=== PATIENT | female | born 1935 | race Caucasian/White ===

== ENCOUNTER 2016-11-05 11:52 | Inpatient (IN) ==
[2016-11-05] MEDS ORDERED: ACETAMINOPHEN 325 MG TABLET PO PRN (15:23)
[2016-11-05] MEDS ORDERED: ONDANSETRON 4 MG/2 ML VIAL IV PRN (15:23)
[2016-11-05] MEDS: metroNIDAZOLE INJ 500 MG in PREMIX 1 EACH IV SCH ×2 (15:41→20:36)
--- NOTE | 2016-11-05 16:20 | General Surg History&Physical ---
Assessment and Plan (1) Left foot infection Status: Acute Assessment and plan: Patient will require surgical debridement. Will admit and initiate IV antibiotics overnight. Indication for surgery as well as the alternative treatment options were reviewed with patient. The risks of surgery reviewed including but not limited to worsening infection, bleeding, blood vessel injury , nerve injury, chronic pain, scarring, the need for additional procedures, partial loss of limb, pneumonia, heart attack, stroke, reactions to medications the possibility of . The patient is aware she is at increased risk considering her cardiac history. We will proceed with surgery in the morning. Current Visit: Yes (2) CHF (congestive heart failure) Status: Acute Assessment and plan: Patient with congestive heart failure last documented EF in medical record 20%; patient reports 3 weeks ago EF of 45% Dr. Dow. Patient also with pulmonary hypertension. We will be judicious with fluids and monitor closely. Current Visit: Yes History of Present Illness Chief complaint: Foot wound History of present illness: Ms. Dempsey is a 80 year old female with past medical history CLL, CHF, CAD, pulmonary HTN GERD, hypertension, hyperlipidemia, and MRSA currently admitted from the office for left foot wound with associated ascending cellulitis. Patient reports this particular wound began approximately 2 weeks ago which she is she is self treated and reports improvement until approximately 3-4 days ago at which time she noted darkening of the wound as well as progression in the erythema. She has had no fever, chills or riders. No drainage from the wound. She denies recent chest pain, palpitations, shortness of breath, wheeze or cough. Pt with last ECHO on record 09/2015 EF 20% and severe pulmonary HTN with PAP 77mmHg. Pt reports she saw Dr. Villanueva 3 wks ago with EF 45%. Home Medications Medication Instructions Recorded Confirmed Type Aspirin Chew Tab 81 mg PO DAILY #100 tablet 08/09/15 09/13/15 Rx Cyclobenzaprine HCl 10 mg PO TID PRN 08/09/15 09/13/15 History Esomeprazole Magnesium [Nexium] 40 mg PO DAILY 08/09/15 09/13/15 History Galantamine HBr [Galantamine ER 8 mg PO DAILY 08/09/15 09/13/15 History Cap] HYDROcodone/ACETAMIN 7.5-325 2 tablet PO BEDTIME PRN 08/09/15 09/13/15 History [Michael 7.5-325] Idelalisib [Zydelig] 150 mg PO BID 08/09/15 09/13/15 History Melatonin 5 mg PO BEDTIME 08/09/15 09/13/15 History Promethazine Tab [Phenergan Tab] 25 mg PO Q8HR PRN 08/09/15 09/13/15 History Ropinirole HCl 0.5 mg PO BEDTIME 08/09/15 09/13/15 History Zolpidem Tartrate 10 mg PO BEDTIME 08/09/15 09/13/15 History hydrOXYzine HCl [Hydroxyzine HCl] 25 mg PO Q6HR PRN 08/09/15 09/13/15 History Atorvastatin [Lipitor] 40 mg PO BEDTIME 09/13/15 09/13/15 History Benazepril HCl 40 mg PO DAILY 09/13/15 09/13/15 History Carvedilol 6.25 mg PO BID 09/13/15 09/13/15 History Furosemide 40 mg PO DAILY 09/13/15 09/13/15 History Magnesium Oxide 250 mg PO DAILY 09/13/15 09/13/15 History Tobramycin 0.3% Oph Soln [Tobrex 1 drop BOTH EYES Q4HR 09/13/15 09/13/15 History 0.3% Oph Soln] Diphenoxylate/Atrop 2.5-0.025 1 tablet PO TID PRN 09/14/15 09/14/15 History [Lomotil Tab] Ticagrelor [Brilinta] 90 mg PO BID #60 tablet 09/15/15 Rx Allergies Allergy/AdvReac Type Severity Reaction Status Date / Time Erythromycin Base Allergy Intermediate RASH Verified 03/03/15 12:23 piroxicam [From Feldene] Allergy Intermediate RASH Verified 03/03/15 12:23 Sulfa (Sulfonamide Allergy Intermediate RASH Verified 03/03/15 12:23 Antibiotics) Medical,Surgical,& Family Hx - Medical History Cardio: History of: CHF, Hypertension, Cardiovascular Problems (Pulmonary HTN) Neurology: History of: Migraine, TIA No history of: Seizures Musculoskeletal: History of: Back/Neck Problems (surgery) Hematology: History of: Anemia, Hematologic Cancer (CLL ) Other: History of: Cancer (CLL) - Surgical History Cardiac Surgeries: Sugical HX of: Cardiac Catheterization Thoracic Surgeries: Patient denies;: Organ Transplant Neurologic Surgeries: Patient denies: Neurologic Surgery Abdominal Surgeries: Surgical HX of: Appendectomy, Colonoscopy, EGD Reproductive Surgeries: Surgical HX of;: Hysterectomy - Family History Family History: Reports;: Family Hypertension (Mother) - Social History Smoking Status: Never smoker Frequency of Alcohol Use: None Type of Drug Use: None Exam - Constitutional Vitals: Period Temp Pulse Resp BP Sys/Ramon Pulse Ox Last 24 Hr 98.8 F-98.8 F 69-70 18-18 115-128/56-63 94-96 General appearance: no acute distress - Head Head exam: Present: normal inspection, normocephalic - Eye Eye exam: Absent: conjunctival injection, periorbital swelling - Neck Neck exam: Present: trachea midline - Respiratory Respiratory exam: Present: clear to auscultation bilaterally - Cardiovascular Cardiovascular exam: Present: RRR - GI/Abdominal GI/Abdominal exam: Present: normal bowel sounds, soft. Absent: tenderness - Extremities Exam Extremities exam: Present: other (Left foot with eschar over dorsum of foot appx 3cm diamter and surounding erythema covering dorsum of foot; no drainage or malodor. DP pulses 2+). Absent: calf tenderness, edema - Neurological Exam Neurological exam: Present: alert, oriented X3 Speech: Present: normal - Skin Skin exam: Present: warm - Constitutional Constitutional: Absent: chills, fever(s) - Cardiovascular Cardiovascular: Present: other (no edema). Absent: chest pain at rest, chest pain with activity, dyspnea on exertion, orthopnea - Respiratory Respiratory: Absent: cough, dyspnea on exertion, wheezing - Gastrointestinal Gastrointestinal: Absent: abdominal pain, diarrhea, nausea, vomiting - Genitourinary Genitourinary: Absent: dysuria, flank pain - Musculoskeletal Musculoskeletal: Absent: arthralgias Hematologic/Lymphatic: Absent: easy bleeding, easy bruising Quality Measures - VTE Contraindication to Pharmacological VTE Prophylaxis: High Risk of Bleeding
[2016-11-05] MEDS: PIPERACILLIN/TAZOBACTAM 3,375 MG in SODIUM CHLORIDE 0.9% 100 ML IV SCH ×2 (16:54→22:28)
[2016-11-06] MEDS: metroNIDAZOLE INJ 500 MG in PREMIX 1 EACH IV SCH ×4 (03:02→21:25)
[2016-11-06] MEDS: PIPERACILLIN/TAZOBACTAM 3,375 MG in SODIUM CHLORIDE 0.9% 100 ML IV SCH ×4 (06:27→22:51)
[2016-11-06] MEDS ORDERED: PROPOFOL 200 MG/20 ML VIAL IV ONE (07:49)
[2016-11-06] MEDS ORDERED: MIDAZOLAM 2 MG/2 ML VIAL ONE (07:49)
[2016-11-06] MEDS ORDERED: fentaNYL 100 MCG/2 ML VIAL ONE (07:49)
[2016-11-06] MEDS ORDERED: LACTATED RINGERS 1,000 ML IV SCH (08:00)
[2016-11-06] MEDS: PANTOPRAZOLE 40 MG TABLET PO SCH (08:54)
--- NOTE | 2016-11-06 09:31 | Anesthesia Post-Op ---
Anesthesia Post OP - Post Ansesthetic Evaluation Patient seen in post op: Yes Resp: within normal limits CV: within normal limits Mental: within normal limits Temp: within normal limits [id number]-[id number]: within normal limits Nausea and Vomiting: within normal limits Pain: within normal limits
[2016-11-06 09:53] LABS: Basophils % 0.6 % (0.0-0.8); Eosinophils # 0.1 10*3/uL (0.0-0.87); Eosinophils % 1.7 % (0.00-10.9); Hematocrit 33.5 VOL% (35.7-47.0); Hemoglobin 10.3 GM/DL (12.0-16.0); Immature Granulocytes % 0.4 %; Immature Granulocytes Absolute 0.02 #; Lymphocytes # 3.8 10*3/uL (1.4-4.0); Lymphocytes % 80.6 % (21.3-54.2); Mean Corpuscular HGB Conc 30.7 GM/DL (32-36); Mean Corpuscular Hemoglobin 25 PG (27-34); Mean Corpuscular Volume 79.8 FL (87-102); Monocytes # 0.5 10*3/uL (0.11-0.8); Monocytes % 10.1 % (1.7-12.7); Neutrophils # 0.3 10*3/uL (1.4-7.4); Neutrophils % 6.6 % (38.7-73.9); Platelet Count 129 T/CUMM (130-400); Red Cell Distribution Width 13.8 % (9.3-17.3); White Blood Count 4.7 T/CUMM (4-12)
[2016-11-06 10:15] LABS: Eosinophils 2 % (0-10); Lymphocytes 77 % (20-55); Segmented Neutrophils 8 % (50-85); Total Cells Counted 100
[2016-11-06 10:16] LABS: Atypical Lymphocytes Few; Hypochromasia 1+; Microcytosis 1+; Ovalocytes Slight
[2016-11-06 10:17] LABS: Platelet Estimate Adequate
--- NOTE | 2016-11-06 13:53 | Operative Note ---
Date of procedure: 11/06/16 Pre-op diagnosis: Necrotic skin and subcutaneous tissue of the left foot Post-op diagnosis: same Procedure: Procedure performed: Excisional debridement of dorsal left foot including skin and subcutaneous tissue. Area debrided was 1.7 x 1.6 cm Procedure in detail: After informed consent was obtained patient taken operating suite placed upon the operating table. After monitored anesthesia initiated left foot was prepped and draped in usual sterile fashion. A procedural pause local anesthetic infiltrated skin and subcutaneous tissue around the necrotic area. 15 blade scalpel was used to perform an excisional debridement removing the nonviable skin and subcutaneous tissue. Below this appeared to be healthy tissue. There was no exposed bone ligament or structural components. The tissue appeared healthy and viable after debridement. Good hemostasis was obtained and the wound was packed. Sterile dressings applied. Patient was taken to recovery room in stable condition. All lap and needle counts correct at the end of the case. Anesthesia: MAC, local Surgeon / Physician: Barry Aranda Estimated blood loss: other (Less than 5 cc) Specimens: other (Necrotic tissue) Condition: stable Disposition: PACU Results - Labs CBC & BMP: 11/06/16 09:27 Discharge Plan - Discharge Medications No Action hydrOXYzine HCl [Hydroxyzine HCl] 25 mg PO Q6HR PRN PRN Reason: Anxiety Cyclobenzaprine HCl 10 mg PO TID PRN PRN Reason: Muscle Spasm Galantamine HBr [Galantamine ER Cap] 8 mg PO BID Esomeprazole Magnesium [Nexium] 40 mg PO DAILY metFORMIN [Glucophage] 500 mg PO BID W/MEALS Sacubitril/Valsartan [Entresto 97 mg-103 mg Tablet] 1 tablet PO BID Atorvastatin [Lipitor] 20 mg PO BEDTIME Ropinirole HCl [Requip] 0.5 mg PO BEDTIME Amlodipine Besylate 5 mg PO DAILY Metoprolol Succinate 50 mg PO BID - Follow Up or Referral - Forms/Instructions
[2016-11-06] MEDS: METOPROLOL SUCCINATE XL 50 MG TABLET PO SCH (21:28)
[2016-11-06] MEDS: GALANTAMINE 8 MG PO SCH (21:28)
[2016-11-07] MEDS: metroNIDAZOLE INJ 500 MG in PREMIX 1 EACH IV SCH ×2 (02:57→08:42)
[2016-11-07 05:47] LABS: Potassium 3.9 MMOL/L (3.5-5.1)
[2016-11-07] MEDS: PIPERACILLIN/TAZOBACTAM 3,375 MG in SODIUM CHLORIDE 0.9% 100 ML IV SCH (06:09)
[2016-11-07] MEDS: PANTOPRAZOLE 40 MG TABLET PO SCH (08:43)
[2016-11-07] MEDS: METOPROLOL SUCCINATE XL 50 MG TABLET PO SCH (08:43)
[2016-11-07] MEDS: GALANTAMINE 8 MG PO SCH (08:48)
[2016-11-07] MEDS ORDERED: amLODIPine 5 MG TABLET PO SCH (09:00)
--- NOTE | 2016-11-07 09:23 | Discharge Summary ---
Hospital Course - Hospital Course Hospital Course: Patient is a 72-year-old female who was direct admitted from the office for excisional debridement of necrotic wound with associated cellulitis. She received IV antibiotics and responded appropriately. There were no complications to note postoperatively. She was discharged home in good condition. She was discharged on oral ciprofloxacin based on MRSA cultures from previous wounds. Wet-to-dry dressing changing education was provided to her and her daughter to be performed daily. [address] Aranda. Diagnosis - Discharge Diagnosis (1) Left foot infection Status: Acute (2) CHF (congestive heart failure) Status: Chronic Discharge Plan - Discharge Data Disposition: Disch To Home/Self Care Condition at Discharge: Stable Discharge Diet: advance to your usual diet, low salt diet Activity: other (Limit ambulation. Elevate LLE while seated. No footwear to rub wound. ) Hygiene: may shower (Do not submerge or soak wound. ) Driving: other (No driving while taking narcotics) Contact your physician if you experience:: fever over 101, Difficulty voiding, Redness or swelling, Nausea/Vomiting, Shortness of breath, Bleeding, pain uncontrolled by pain medications Wound / Dressing Care Instructions: Keep surgical wound clean, dry and covered. Avoid excessive perspiration. - Discharge Medications New Ciprofloxacin Tab [Cipro Tab] 500 mg PO BID #14 tablet HYDROcodone/ACETAMIN 7.5-325 [[place] 7.5-325] 1 tablet PO Q4H PRN #30 tablet PRN Reason: Pain Moderate To Severe (4-10) Continue hydrOXYzine HCl [Hydroxyzine HCl] 25 mg PO Q6HR PRN PRN Reason: Anxiety Cyclobenzaprine HCl 10 mg PO TID PRN PRN Reason: Muscle Spasm Galantamine HBr [Galantamine ER Cap] 8 mg PO BID Esomeprazole Magnesium [Nexium] 40 mg PO DAILY metFORMIN [Glucophage] 500 mg PO BID W/MEALS Sacubitril/Valsartan [Entresto 97 mg-103 mg Tablet] 1 tablet PO BID Atorvastatin [Lipitor] 20 mg PO BEDTIME Ropinirole HCl [Requip] 0.5 mg PO BEDTIME Amlodipine Besylate 5 mg PO DAILY Metoprolol Succinate 50 mg PO BID - Follow Up or Referral Follow Up: Barry Aranda MD [Physician] - (11/[address] [place] - please schedule late morning or afternoon) - Forms/Instructions Instructions: Wound Infection (DC) Exam - Constitutional Vitals: Period Temp Pulse Resp BP Sys/Ramon Pulse Ox Last 24 Hr 97.5 F-98.2 F 68-79 16-20 116-148/61-72 96-98 General appearance: no acute distress - Head Head exam: Present: normal inspection, normocephalic - Eye Eye exam: Absent: conjunctival injection, scleral icterus - Respiratory Respiratory exam: Present: clear to auscultation bilaterally - Cardiovascular Cardiovascular exam: Present: regular rate and rhythm - GI/Abdominal GI/Abdominal exam: Present: normal bowel sounds, soft. Absent: tenderness - Extremities Exam Extremities exam: Absent: calf tenderness, edema - Neurological Exam Neurological exam: Present: alert, oriented X3 - Psychiatric Psychiatric exam: Present: normal affect, normal mood - Skin Skin exam: Present: normal color (Toes warm with brisk capillary refill. New dressing is in place which is clean and dry.) Discharge Results Procedures and tests throughout hospitalization: Pending Orders 11/07/16 04:00 BMP [Basic Metabolic Panel] #Excisional debridement left foot wound Labs on day of discharge: Labs from last 24 hours 11/07/16 11/06/16 04:43 09:27 WBC 4.7 RBC 4.20 Hgb 10.3 L Hct 33.5 L MCV 79.8 L MCH 25 L MCHC 30.7 L RDW 13.8 Plt Count 129 L MPV 9.0 L Neut % (Auto) 6.6 L Lymph % (Auto) 80.6 H [place] % (Auto) 10.1 Eos % (Auto) 1.7 Baso % (Auto) 0.6 Neut # (Auto) 0.3 L Lymph # (Auto) 3.8 [place] # (Auto) 0.5 Eos # (Auto) 0.1 Baso # (Auto) 0.0 Total Counted 100 Immature Gran % 0.4 Nucleated RBC % 0.0 Immature Gran # 0.02 Segmented Neutrophils 8 L Lymphocytes 77 H Monocytes 13 Eosinophils 2 Nucleated RBCs # 0.00 Atypical Lymphocytes Few Platelet Estimate Adequate Hypochromasia 1+ Microcytosis 1+ Ovalocytes Slight Sodium 143 Potassium 3.9 Chloride 107 Carbon Dioxide 25 Anion Gap 14.9 BUN 23 H Creatinine 0.90 GFR Calculation 58 BUN/Creatinine Ratio 25.00 H Glucose 161 H Calculated Osmolality 291.0 Calcium 8.0 L DS: Provider Date of admission: 11/05/16 12:50 Primary care physician: Nonstaff Physician Attending physician on admission: Barry Aranda MD Consults: 11/05/16 15:06 Consult to Pastoral Services [CONS] Routine Comment: Pastoral Screen: Request Video Rental Clerk Visit Pastoral Screen Source of Request: Patient Discharging clinician: Lali Yip PA-C
[2016-11-07 11:38] VITALS: BP 144/68
--- NOTE | 2016-11-07 13:19 | Pathology Report from [facility] ---
[facility] – [place] ACCESSION # : [id number] PATIENT NAME : Josette Dempsey ORDERING DR : Barry Aranda MD CLINICAL HX: Foot ulcer & cellulitis POST-OP DX: Same SPECIMEN INFO: LT foot lesion GROSS DESCRIPTION: Received in formalin labeled JOSETTE DEMPSEY is a 2.1 x 1.7 x 0.4 cm reddish pink skin fragment with a cruz arana ulcerated skin surface. Bilingual Case Manager sections are submitted in one cassette. DIAGNOSIS FOR JOSETTE DEMPSEY: LEFT FOOT LESION, DEBRIDEMENT: Ulceration with necrosis and suppuration. COLLECTED DATE: 11/06/2016 [facility] [place] REPORT DATE: 11/07/2016 ELECTRONICALLY SIGNED BY: Bebo Norris M.D. 11/07/2016 - 10:09:51 [facility]
--- NOTE | 2016-11-11 16:26 | Physician Query Form ---
CLICK EDIT DOCUMENT TO SELECT QUERY ANSWER --> OK --> SIGN Bette Miguel RN Clinical Date Night Caregiver W) [phone] (f) [phone] [email or web address]: Make your selection(s) from the choices in EACH section by typing an "x" and enter comments in the comment section. Please use your independent medical judgment in providing your response. This request does not imply that any particular answer is desired or expected. CLINICAL INDICATORS: (Providers should not edit this section) Based on documentation of "CHF, last documented EF in medical record 20%". Pt. takes Amlodipin and Metoprolol as home medications. Please provide further specificity regarding CHF. ACUITY: ( ) Acute (x ) Chronic ( ) Acute on Chronic ( ) Clinicallly unable to determine TYPE: ( x) Systolic (HFrEF - heart failure with reduced systolic function/EF) ( ) Diastolic (HFpEF - heart failure with preserved systolic function/EF) ( ) Combined Systolic/Diastolic ( ) Other, please specify: ( ) Clinically unable to determine ( ) The patient does NOT have CHF COMMENTS: PLEASE ALSO DOCUMENT RESPONSE IN PROGRESS NOTES AND/OR DISCHARGE SUMMARY Use of terms such as suspected, likely, or probable (associated with a specific diagnosis that is being evaluated, monitored, or treated as if it exists) are acceptable and can be restated in the discharge summary if not ruled out. MTDD
== END 2016-11-07 12:46 | disposition home or self-care (01) | DRG 264 ==
LOC: N.3E 12:50
PROVIDERS: ADMIT Surgery; ATTEND Surgery

== ENCOUNTER 2016-12-17 11:25 | Inpatient (IN) ==
[2016-12-17] MEDS ORDERED: CLINDAMYCIN INJ 900 MG in PREMIX 1 EACH IV SCH (14:00)
[2016-12-17 14:17] LABS: Basophils % 0.5 % (0.0-0.8); Eosinophils # 0.1 10*3/uL (0.0-0.87); Eosinophils % 1.7 % (0.00-10.9); Hemoglobin 10.4 GM/DL (12.0-16.0); Immature Granulocytes Absolute 0.06 #; Lymphocytes # 4.4 10*3/uL (1.4-4.0); Lymphocytes % 75.2 % (21.3-54.2); Mean Corpuscular HGB Conc 31.5 GM/DL (32-36); Mean Corpuscular Hemoglobin 24 PG (27-34); Mean Corpuscular Volume 77.3 FL (87-102); Mean Platelet Volume 8.4 FL (9.6-12.0); Monocytes # 0.7 10*3/uL (0.11-0.8); Monocytes % 12.2 % (1.7-12.7); Neutrophils # 0.5 10*3/uL (1.4-7.4); Neutrophils % 9.4 % (38.7-73.9); Platelet Count 155 T/CUMM (130-400); Red Blood Count 4.27 MC/CUMM (3.8-5.5); Red Cell Distribution Width 14.5 % (9.3-17.3); White Blood Count 5.8 T/CUMM (4-12)
[2016-12-17 14:41] LABS: Calcium 8.6 MG/DL (8.5-10.1); Osmolality,Calculated 284.4 MOS/KG (273-304); Potassium 3.6 MMOL/L (3.5-5.1)
[2016-12-17 15:04] LABS: Band Neutrophils 1 % (0-10); Eosinophils 3 % (0-10); Lymphocytes 78 % (20-55); Platelet Estimate Normal; Segmented Neutrophils 11 % (50-85); Total Cells Counted 100
[2016-12-17 15:05] LABS: Atypical Lymphocytes Few; Hypochromasia Slight; Ovalocytes Few
[2016-12-17 15:06] LABS: Smudge Cells Few
[2016-12-17] MEDS: PIPERACILLIN/TAZOBACTAM 3,375 MG in SODIUM CHLORIDE 0.9% 100 ML IV SCH ×2 (15:17→22:15)
--- NOTE | 2016-12-17 15:59 | Infectious Disease Consult ---
Assessment and Plan (1) Cellulitis of left foot Status: Acute Assessment and plan: Cellulitis to dorsum of left foot with central area of necrosis. Recommendations: 1. Blood cultures for completeness sake 2. Agree with empiric Zosyn 2. Incentive clindamycin would give empiric vancomycin [patient has old culture with MRSA which is actually resistant to clindamycin]; consult pharmacy to assist with dosing and monitoring Thank you very much for the consult. Will follow. Current Visit: Yes (2) CLL (chronic lymphocytic leukemia) Status: Acute Current Visit: No History of Present Illness Chief complaint: Necrotic wound to left foot with cellulitis History of present illness: Ms. Dempsey is a 81 year old female with a history of CLL was doing well until about September this year when she developed a small discoloration to dorsum of left foot. It evolved into wound which became infected. She had debridement by Dr. Rodriguez in early October. However the wound never healed and progressed to the point with there is a large scab and surrounding redness. She went for follow- up with Dr. Reyes today and he decided to admit to the hospital for debridement. She has not had any fever or other constitutional symptoms. She has a small wound to the right foot dorsally where, dropped and is about a month ago. Home Medications Medication Instructions Recorded Confirmed Type Esomeprazole Magnesium [Nexium] 40 mg PO BEDTIME 08/09/15 12/17/16 History Galantamine HBr [Galantamine ER 8 mg PO BID W/MEALS 08/09/15 12/17/16 History Cap] Atorvastatin [Lipitor] 20 mg PO DAILY 11/06/16 12/17/16 History Metoprolol Succinate 50 mg PO BID 11/06/16 12/17/16 History Ropinirole HCl [Requip] 0.5 mg PO BEDTIME 11/06/16 12/17/16 History Sacubitril/Valsartan [Entresto 97 1 tablet PO BID 11/06/16 12/17/16 History mg-103 mg Tablet] metFORMIN [Glucophage] 500 mg PO BID W/MEALS 11/06/16 12/17/16 History Furosemide Tab [Lasix Tab] 1 tablet PO DAILY PRN 12/17/16 12/17/16 History Allergies Allergy/AdvReac Type Severity Reaction Status Date / Time Erythromycin Base Allergy Intermediate RASH Verified 03/03/15 12:23 piroxicam [From Feldene] Allergy Intermediate RASH Verified 03/03/15 12:23 Sulfa (Sulfonamide Allergy Intermediate RASH Verified 03/03/15 12:23 Antibiotics) 12 point system: reviewed and no additional remarkable complaints except as stated (Per HPI) Medical,Surgical,& Family Hx - Medical History Cardio: History of: CHF, Hypertension, Cardiovascular Problems (Pulmonary HTN) Psychological: No history of: Anxiety Disorders, ADHD, Behavior Problems, Bipolar Disorder, Depression, Previous Suicide Attempt, Psychiatric/Substance Abuse Tx, Schizophrenia, Violent Behavior, Psychiatric Problems Neurology: History of: Migraine, TIA No history of: Seizures Endocrine: History of: Diabetes Mellitus (NIDDM) (patient is on Metformin) Musculoskeletal: History of: Back/Neck Problems (surgery) Hematology: History of: Anemia, Hematologic Cancer (CLL ) Other: History of: Cancer (CLL) - Surgical History Cardiac Surgeries: Sugical HX of: Cardiac Catheterization Thoracic Surgeries: Patient denies;: Organ Transplant Neurologic Surgeries: Patient denies: Neurologic Surgery Abdominal Surgeries: Surgical HX of: Appendectomy, Colonoscopy, EGD Reproductive Surgeries: Surgical HX of;: Hysterectomy - Family History Family History: Reports;: Family Hypertension (Mother) - Social History Smoking Status: Never smoker Frequency of Alcohol Use: None Type of Drug Use: None Infectious Disease Exam H&P - Constitutional Vitals: Vital Signs Temp Pulse Resp BP Pulse Ox 97.8 F 74 20 127/56 97 12/17/16 13:40 12/17/16 13:40 12/17/16 13:40 12/17/16 13:40 12/17/16 13:40 Intake and Output 12/16/16 12/17/16 12/17/16 23:59 07:59 15:59 Output Total 0 / 0 Balance 0 / 0 Output: Stool 0 / 0 Other: # Voids 2 # Bowel Movements 0 Weight 56.869 kg Patient Weight 12/17/16 23:59 Weight 56.869 kg Exam: General: Patient comfortable HEENT: Mucous membranes pink and moist, anicteric acyanotic, YULIA, no oropharyngeal exudates Neck: Supple, no thyroid gland enlargement Respiratory system: Breath sounds vesicular, no crepitations or wheezes Cardiovascular: Normal S1 and S2, no murmurs appreciated Abdomen: Normal bowel sounds, soft nontender throughout, no organomegaly or mass Genitourinary: No suprapubic pain or bladder distention Extremities: no edema, small wound to dorsum of right foot with overlying scab; she has a large area of necrosis about 4 cm wide on dorsum of left foot with surrounding erythema and hyperemia as well as a bit of swelling Skin: No rash Reports - Labs CBC & BMP: 12/17/16 14:01 12/17/16 14:01 Labs: Laboratory Results - last 24 hr 12/17/16 12/17/16 14:01 14:01 WBC 5.8 RBC 4.27 Hgb 10.4 L Hct 33.0 L MCV 77.3 L MCH 24 L MCHC 31.5 L RDW 14.5 Plt Count 155 MPV 8.4 L Neut % (Auto) 9.4 L Lymph % (Auto) 75.2 H [place] % (Auto) 12.2 Eos % (Auto) 1.7 Baso % (Auto) 0.5 Neut # (Auto) 0.5 L Lymph # (Auto) 4.4 H [place] # (Auto) 0.7 Eos # (Auto) 0.1 Baso # (Auto) 0.0 Total Counted 100 Immature Gran % 1.0 Nucleated RBC % 0.0 Immature Gran # 0.06 Segmented Neutrophils 11 L Band Neutrophils 1 Lymphocytes 78 H Monocytes 7 Eosinophils 3 Nucleated RBCs # 0.00 Atypical Lymphocytes Few Smudge Cells Few Platelet Estimate Normal Hypochromasia Slight Ovalocytes Few Sodium 140 Potassium 3.6 Chloride 105 Carbon Dioxide 26 Anion Gap 12.6 BUN 23 H Creatinine 0.70 GFR Calculation 78 BUN/Creatinine Ratio 32.00 H Glucose 140 H Calculated Osmolality 284.4 Calcium 8.6
[2016-12-17] MEDS: VANCOMYCIN INJ 1,000 MG in SODIUM CHLORIDE 0.9% 250 ML IV SCH (19:59)
[2016-12-17] MEDS: SACUBITRIL/VALSARTAN 49-51 MG TABLET PO SCH (22:07)
[2016-12-17] MEDS: ZALEPLON 5 MG CAPSULE PO PRN (22:12)
[2016-12-18] MEDS: PIPERACILLIN/TAZOBACTAM 3,375 MG in SODIUM CHLORIDE 0.9% 100 ML IV SCH ×2 (05:49→16:21)
[2016-12-18] MEDS ORDERED: BUPIVACAINE 0.25% 50 ML VIAL ONE (07:20)
--- NOTE | 2016-12-18 08:12 | Anesthesia Post-Op ---
Anesthesia Post OP - Post Ansesthetic Evaluation Patient seen in post op: Yes Resp: within normal limits CV: within normal limits Mental: within normal limits Temp: within normal limits Aozi-Ej-Efpiseosh: within normal limits Nausea and Vomiting: within normal limits Pain: within normal limits
[2016-12-18] MEDS ORDERED: KETAMINE 500 MG/10 ML VIAL ONE (08:17)
[2016-12-18] MEDS ORDERED: fentaNYL 100 MCG/2 ML VIAL ONE (08:17)
[2016-12-18] MEDS ORDERED: ETOMIDATE 20 MG/10 ML VIAL IV ONE (08:18)
[2016-12-18] MEDS ORDERED: MIDAZOLAM 2 MG/2 ML VIAL ONE (08:18)
[2016-12-18] MEDS: SACUBITRIL/VALSARTAN 49-51 MG TABLET PO SCH ×2 (11:30→20:25)
--- NOTE | 2016-12-18 11:45 | Infectious Disease Progress ---
Assessment and Plan (1) Cellulitis of left foot Status: Acute Assessment and plan: Cellulitis to dorsum of left foot with central area of necrosis. She status post debridement this morning. Recommendations: 1. Follow-up results of blood cultures, and presumably wound culture sent today 2. Continue with empiric Zosyn and vancomycin 3. Renal function and vancomycin therapeutic drug monitoring Current Visit: Yes (2) CLL (chronic lymphocytic leukemia) Status: Acute Current Visit: No Infectious Disease - PN: Subj Interval history: Patient tolerating antibiotics without nausea vomiting or diarrhea. She has not had fever. Had debridement of left foot wound today. Infectious Disease Exam (PN) - Constitutional Vitals: Temp Pulse Resp BP Pulse Ox 96.6 F L 74 18 139/76 96 12/18/16 10:55 12/18/16 10:55 12/18/16 10:55 12/18/16 10:55 12/18/16 10:55 Exam: General appearance: no acute distress - Eye Eye exam: Present: EOMI. no icterus Pupils: Present: YULIA - ENT ENT exam: no oral exudates - Respiratory Respiratory exam: vesicular BS, no crepitations or wheezes - Cardiovascular Cardiovascular exam: regular rate and rhythm, no murmurs - GI/Abdominal GI/Abdominal exam: normal bowel sounds, soft, non-tender, no organomegaly or mass - Extremities Exam Extremities exam: no edema - Skin Skin exam: no rash, left foot bandaged Results - Labs CBC & BMP: 12/17/16 14:01 12/17/16 14:01 Lab Results: I have reviewed the past 24 hour labs Quality Measures - Stroke Symptom Onset Unknown: No
--- NOTE | 2016-12-18 11:56 | Operative Note ---
Date of procedure: 12/18/16 Pre-op diagnosis: Bilateral lower extremity ulcers with nonviable tissue Post-op diagnosis: same Procedure: Procedure performed: #1 excisional debridement right foot ulcer including nonviable skin and subcutaneous tissue. Post debridement area 1.3 x 1.3 cm #2 excisional debridement left foot ulcer including nonviable skin and subcutaneous tissue. Post debridement area 4.3 x 3 cm Procedure in detail: After informed consent was obtained patient taken operating room lights upon the table. After monitored anesthesia was initiated bilateral feet were prepped and draped in usual sterile fashion a procedural pause 15 blade scalpel and dermal curette were used to perform excisional debridement of both ulcers removing the nonviable skin and subcutaneous tissue. Below the left nonviable subcutaneous tissue was small amount of purulence was was cultured. Did not appear to track deeper in the foot and appeared to be confined to the soft tissue. Wounds were thoroughly irrigated and suctioned there is good hemostasis with direct pressure. Aquacel and dressings were applied and the patient tolerated procedure well and was taken recovery room in stable condition. All lap and needle counts correct in the case Anesthesia: MAC, local Surgeon / Physician: Barry Aranda Estimated blood loss: other (Less than 10 cc) Specimens: other (Culture sent) Condition: stable Disposition: PACU Results - Labs CBC & BMP: 12/17/16 14:01 12/17/16 14:01 Discharge Plan - Discharge Medications No Action Galantamine HBr [Galantamine ER Cap] 8 mg PO BID W/MEALS Esomeprazole Magnesium [Nexium] 40 mg PO BEDTIME metFORMIN [Glucophage] 500 mg PO BID W/MEALS Sacubitril/Valsartan [Entresto 97 mg-103 mg Tablet] 1 tablet PO BID Atorvastatin [Lipitor] 20 mg PO DAILY Ropinirole HCl [Requip] 0.5 mg PO BEDTIME Furosemide Tab [Lasix Tab] 1 tablet PO DAILY PRN PRN Reason: edema Metoprolol Succinate 50 mg PO BID - Follow Up or Referral - Forms/Instructions
[2016-12-18] MEDS: VANCOMYCIN INJ 1,000 MG in SODIUM CHLORIDE 0.9% 250 ML IV SCH ×2 (13:21→20:25)
[2016-12-18] MEDS: ZALEPLON 5 MG CAPSULE PO PRN (21:49)
[2016-12-19] MEDS: PIPERACILLIN/TAZOBACTAM 3,375 MG in SODIUM CHLORIDE 0.9% 100 ML IV SCH ×3 (01:41→16:33)
[2016-12-19 06:41] LABS: Calcium 8.2 MG/DL (8.5-10.1); Osmolality,Calculated 284.1 MOS/KG (273-304); Potassium 3.9 MMOL/L (3.5-5.1)
[2016-12-19] MEDS: SACUBITRIL/VALSARTAN 49-51 MG TABLET PO SCH (09:56)
[2016-12-19] MEDS: VANCOMYCIN INJ 1,000 MG in SODIUM CHLORIDE 0.9% 250 ML IV SCH (09:57)
[2016-12-19] MEDS ORDERED: FUROSEMIDE 40 MG TABLET PO PRN (10:11)
[2016-12-19] MEDS ORDERED: SACUBITRIL/VALSARTAN 49-51 MG TABLET PO SCH (10:15)
[2016-12-19] MEDS ORDERED: METOPROLOL SUCCINATE XL 50 MG TABLET PO SCH (10:30)
[2016-12-19] MEDS ORDERED: ATORVASTATIN 20 MG TABLET PO SCH (10:30)
[2016-12-19 11:33] VITALS: BP 183/80
--- NOTE | 2016-12-19 12:09 | Infectious Disease Progress ---
Assessment and Plan (1) Cellulitis of left foot Status: Acute Assessment and plan: Cellulitis to dorsum of left foot with central area of necrosis. She is status post debridement this morning. Recommendations: I am okay with patient going home today. Suggest empiric doxycycline and cefuroxime. I can see in the office early next week to check finalized culture results and adjust antibiotics accordingly. Continue local wound care. Current Visit: Yes (2) CLL (chronic lymphocytic leukemia) Status: Chronic Current Visit: No Infectious Disease - PN: Subj Interval history: Patient generally feeling well having had debridement of wounds on both feet yesterday. No fever, no nausea vomiting or diarrhea and antibiotics. Infectious Disease Exam (PN) - Constitutional Vitals: Temp Pulse Resp BP Pulse Ox 98.6 F 87 18 183/80 95 12/19/16 10:34 12/19/16 10:34 12/19/16 10:34 12/19/16 10:34 12/19/16 10:34 Exam: General appearance: no acute distress - Eye Eye exam: Present: EOMI. no icterus Pupils: Present: YULIA - ENT ENT exam: no oral exudates - Respiratory Respiratory exam: vesicular BS, no crepitations or wheezes - Cardiovascular Cardiovascular exam: regular rate and rhythm, no murmurs - GI/Abdominal GI/Abdominal exam: normal bowel sounds, soft, non-tender, no organomegaly or mass - Extremities Exam Extremities exam: no edema - Skin Skin exam: Wounds to dorsum of both feet from debridement yesterday, less surrounding erythema and edema compared to yesterday and no significant tenderness Results - Labs CBC & BMP: 12/17/16 14:01 12/19/16 05:29 Lab Results: I have reviewed the past 24 hour labs (Gram-positive cocci and 2 different gram-negative rods growing from wound culture) Quality Measures - Stroke Symptom Onset Unknown: No Specialty Discharge - Follow Up or Referrals Follow up with: Salina Perez MD [Physician] - 12/24/16 11:30 am Barry Aranda MD [Physician] - 12/24/16 9:00 am (she will be worked in on that day)
--- NOTE | 2016-12-19 12:49 | Discharge Summary ---
Hospital Course - Hospital Course Hospital Course: Ms. Dempsey is a 81-year-old white female with history of CLL, chronic pain, diabetes, hyperlipidemia, and osteoarthritis admitted by Dr. Aranda from his office on 12/17/2016 with necrotic bilateral diabetic foot wounds. She was taken to the operating room on 12/18/2016 for excisional debridement of the right foot including nonviable skin and subcutaneous tissue and debridement of the left foot as well. Dr. Perez from infectious diseases was consulted to assist with antibiotic choice. Her wounds are clean today and the erythema has improved. Patient is still in a good bit of pain. ABIs done were normal. Initial cultures are growing gram-positive cocci into gram-negative rods. Her sensitivities are still pending. The wound care nurse has also seen the patient and recommended wound care and it has been ordered. Patient will also receive home health for daily wound care. Patient will follow up with Dr. Perez next Friday to follow-up her culture results and she will follow-up with Dr. Aranda in 1 week. Complete discharge instructions were given to the patient and the daughter in the room. Care coordination, chart review, and completed discharge paperwork took approximately 41 minutes. 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 rinse well with saline. apply small amount of hydro gel to wound base. cover with xerform gauze. secure with optifoam border. may wear socks to keep foams in place or wrap with cast padding and an shaggy. - Discharge Medications New HYDROcodone/ACETAMIN 7.5-325 [[place] 7.5-325] 1 - 2 tablet PO Q6H PRN #30 tablet PRN Reason: Pain Moderate (4-7) Doxycycline Hyclate Cap [Vibramycin Cap] 100 mg PO BID #20 capsule Cefuroxime Tab [Ceftin] 500 mg PO BID #20 tablet Continue Galantamine HBr [Galantamine ER Cap] 8 mg PO BID W/MEALS Esomeprazole Magnesium [Nexium] 40 mg PO BEDTIME metFORMIN [Glucophage] 500 mg PO BID W/MEALS Sacubitril/Valsartan [Entresto 97 mg-103 mg Tablet] 1 tablet PO BID Atorvastatin [Lipitor] 20 mg PO DAILY Ropinirole HCl [Requip] 0.5 mg PO BEDTIME Furosemide Tab [Lasix Tab] 1 tablet PO DAILY PRN PRN Reason: edema Metoprolol Succinate 50 mg PO BID - Follow Up or Referral Follow Up: Salina Perez MD [Physician] - 12/24/16 Brary Aranda MD [Physician] - 1 Week - Forms/Instructions Exam - Constitutional Vitals: Period Temp Pulse Resp BP Sys/Ramon Pulse Ox Last 24 Hr 97.0 F-98.6 F 79-87 16-18 142-183/70-84 93-97 Discharge Results Procedures and tests throughout hospitalization: Pending Orders 12/17/16 16:22 Blood Culture Stat 12/18/16 07:55 Anaerobic Culture Routine Wound Culture Routine Labs on day of discharge: Labs from last 24 hours 12/19/16 05:29 Sodium 142 Potassium 3.9 Chloride 105 Carbon Dioxide 29 Anion Gap 11.9 BUN 13 Creatinine 0.60 GFR Calculation 82 BUN/Creatinine Ratio 21.00 H Glucose 137 H Calculated Osmolality 284.1 Calcium 8.2 L Preliminary micro results at discharge 12/18/16 07:55 Wound Culture - Preliminary Foot - Left Gram Positive Cocci Gram Negative Rods Gram Negative Rods#2 12/17/16 16:22 Blood Culture - Preliminary Blood No growth at 1 day 12/17/16 16:22 Blood Culture - Preliminary Blood No growth at 1 day DS: Provider Date of admission: 12/18/16 12:57 Primary care physician: Nonstaff Physician Attending physician on admission: Barry Aranda MD Consults: 12/17/16 13:57 Consult to Physician [CONS] Routine Comment: MAY SEE IN AM CELLUTIS NECROTIC TISSUE BOTH FEET Consulting Provider: Salina Perez When should Consulting Provider be notified: In am Person Notified: Pattie Date Notified: 12/17/16 Time Notified: 14:05 12/17/16 16:02 Consult to Pharmacy [CONS] Routine Reason for Pharmacy Consult: Dose/Manage Vancomycin 12/19/16 12:43 Consult to Case Mgmt/Social Srvs [CONS] Routine Reason for Case Mgmt/Social Srvs: Home Health Consult Comment: daily wound care Discharging clinician: ANAHY Álvarez Expected date of discharge: 12/19/16
[2016-12-19] MEDS ORDERED: GALANTAMINE 8 MG PO SCH (17:00)
[2016-12-19] MEDS ORDERED: rOPINIRole 0.25 MG TABLET PO SCH (21:00)
== END 2016-12-19 16:25 | disposition home health service (06) | DRG 623 ==
LOC: N.5E
PROVIDERS: ADMIT Surgery; ATTEND Surgery

== ENCOUNTER 2017-07-15 14:00 | Inpatient (IN) ==
[2017-07-15] MEDS ORDERED: DALBAVANCIN 1,500 MG in DEXTROSE 5% 500 ML IV ONE (15:08)
[2017-07-15] MEDS ORDERED: ONDANSETRON 4 MG/2 ML VIAL IV PRN (19:50)
[2017-07-15] MEDS ORDERED: ACETAMINOPHEN 325 MG TABLET PO PRN (19:50)
[2017-07-15] MEDS ORDERED: ZALEPLON 5 MG CAPSULE PO PRN (19:50)
[2017-07-15] MEDS ORDERED: GLUCAGON 1 MG VIAL IM PRN (19:50)
[2017-07-15] MEDS ORDERED: DEXTROSE 50% 25 GM/50 ML VIAL IV PRN (19:50)
[2017-07-15 20:02] LABS: Basophils % 0.5 % (0.0-0.8); Eosinophils # 0.1 10*3/uL (0.0-0.87); Eosinophils % 1.5 % (0.00-10.9); Hematocrit 35.2 VOL% (35.7-47.0); Hemoglobin 10.6 GM/DL (12.0-16.0); Immature Granulocytes % 0.2 %; Immature Granulocytes Absolute 0.02 #; Lymphocytes # 6.4 10*3/uL (1.4-4.0); Mean Corpuscular HGB Conc 30.1 GM/DL (32-36); Mean Corpuscular Hemoglobin 23 PG (27-34); Mean Corpuscular Volume 75.7 FL (87-102); Mean Platelet Volume 10.4 FL (9.6-12.0); Monocytes # 0.7 10*3/uL (0.11-0.8); Monocytes % 8.4 % (1.7-12.7); Neutrophils # 0.9 10*3/uL (1.4-7.4); Neutrophils % 10.4 % (38.7-73.9); Platelet Count 165 T/CUMM (130-400); Red Blood Count 4.65 MC/CUMM (3.8-5.5); Red Cell Distribution Width 14.2 % (9.3-17.3); White Blood Count 8.1 T/CUMM (4-12)
[2017-07-15 20:14] LABS: Lactic Acid 1.5 MMOL/L (0.4-2.0)
[2017-07-15 20:16] LABS: Alanine Aminotransferase 14 U/L (13-56); Albumin 3.7 G/DL (3.4-5.0); Alkaline Phosphatase 77 U/L (45-117); Aspartate Amino Transferase 24 U/L (0-37); Bilirubin,Total < 0.39 MG/DL (0.2-1.0); Blood Urea Nitrogen 13 MG/DL (7-18); Calcium 8.8 MG/DL (8.5-10.1); Glucose 105 MG/DL (74-106); Osmolality,Calculated 278.4 MOS/KG (273-304); Potassium 3.7 MMOL/L (3.5-5.1); Sodium 140 MMOL/L (136-145); Total Protein 6.5 G/DL (6.4-8.3)
[2017-07-15 20:56] LABS: Lymphocytes 84 % (20-55); Platelet Estimate Decreased; Polychromasia Few; Segmented Neutrophils 10 % (50-85); Total Cells Counted 100
[2017-07-15] MEDS: CEFTAROLINE 600 MG in SODIUM CHLORIDE 0.9% 100 ML IV SCH (22:36)
[2017-07-15] MEDS: VANCOMYCIN INJ 750 MG in SODIUM CHLORIDE 0.9% 250 ML IV SCH (23:40)
[2017-07-15 23:50] LABS: Apearance,Urine CLEAR (Clear); Bilirubin,Urine Negative (Negative); Blood, Urine Small mg/dL (Negative); Glucose,Urine (UA) Negative (Negative); Ketones,Urine 5 mg/dL (Negative); Mucus,Urine Occasional /LPF (Occasional); Nitrite,Urine Negative (Negative); Protein,Urine 30 MG/DL; RBC,Urine 5 /HPF (0-4); Squamous Epithelial Cell,Urine Occasional /HPF (0-10); Urine Color Yellow (Yellow); Urine Urobilinogen < 2.0 EU/DL (0.2-1.0); WBC,Urine 1 /HPF (0-6)
[2017-07-16 05:22] LABS: Basophils % 0.3 % (0.0-0.8); Eosinophils # 0.1 10*3/uL (0.0-0.87); Eosinophils % 1.6 % (0.00-10.9); Hematocrit 30.6 VOL% (35.7-47.0); Hemoglobin 9.6 GM/DL (12.0-16.0); Immature Granulocytes % 0.3 %; Immature Granulocytes Absolute 0.02 #; Lymphocytes # 5.4 10*3/uL (1.4-4.0); Lymphocytes % 79.6 % (21.3-54.2); Mean Corpuscular HGB Conc 31.4 GM/DL (32-36); Mean Corpuscular Hemoglobin 23 PG (27-34); Mean Corpuscular Volume 74.3 FL (87-102); Mean Platelet Volume 9.5 FL (9.6-12.0); Monocytes # 0.6 10*3/uL (0.11-0.8); Monocytes % 8.8 % (1.7-12.7); Neutrophils # 0.6 10*3/uL (1.4-7.4); Neutrophils % 9.4 % (38.7-73.9); Platelet Count 137 T/CUMM (130-400); Red Blood Count 4.12 MC/CUMM (3.8-5.5); Red Cell Distribution Width 14.1 % (9.3-17.3); White Blood Count 6.8 T/CUMM (4-12)
[2017-07-16 06:08] LABS: Calcium 7.9 MG/DL (8.5-10.1); Osmolality,Calculated 283.3 MOS/KG (273-304); Potassium 3.5 MMOL/L (3.5-5.1)
[2017-07-16 06:11] LABS: Atypical Lymphocytes Few; Band Neutrophils 1 % (0-10); Eosinophils 1 % (0-10); Giant Platelets Few; Hypochromasia 1+; Lymphocytes 80 % (20-55); Platelet Estimate Normal; Segmented Neutrophils 10 % (50-85); Smudge Cells Few; Total Cells Counted 100
[2017-07-16] MEDS: ENOXAPARIN 40 MG/0.4 ML SYRINGE SUBCUT SCH (08:54)
[2017-07-16] MEDS: ATORVASTATIN 40 MG TABLET PO SCH (08:55)
[2017-07-16] MEDS: CEFTAROLINE 600 MG in SODIUM CHLORIDE 0.9% 100 ML IV SCH (08:55)
[2017-07-16] MEDS: PANTOPRAZOLE 40 MG TABLET PO SCH (08:55)
[2017-07-16] MEDS: VANCOMYCIN INJ 750 MG in SODIUM CHLORIDE 0.9% 250 ML IV SCH ×2 (10:06→22:45)
[2017-07-16] MEDS: CEFEPIME 2,000 MG in SYRINGE 1 EACH IV SCH ×2 (12:14→22:35)
[2017-07-16] MEDS ORDERED: FUROSEMIDE 40 MG TABLET PO PRN (14:16)
[2017-07-16] MEDS ORDERED: hydrOXYzine HCL 25 MG TABLET PO PRN (14:16)
[2017-07-16] MEDS: metFORMIN 500 MG TABLET PO SCH (16:56)
[2017-07-16] MEDS: GALANTAMINE 8 MG PO SCH (16:57)
[2017-07-16] MEDS: CLOPIDOGREL 75 MG TABLET PO SCH (16:57)
[2017-07-16] MEDS: METOPROLOL SUCCINATE XL 50 MG TABLET PO SCH (20:55)
[2017-07-16] MEDS: rOPINIRole 0.25 MG TABLET PO SCH (20:55)
[2017-07-17] MEDS: CEFEPIME 2,000 MG in SYRINGE 1 EACH IV SCH ×3 (05:20→20:55)
[2017-07-17 06:43] LABS: Basophils % 0.7 % (0.0-0.8); Eosinophils # 0.1 10*3/uL (0.0-0.87); Eosinophils % 2.5 % (0.00-10.9); Hematocrit 31.2 VOL% (35.7-47.0); Hemoglobin 9.9 GM/DL (12.0-16.0); Immature Granulocytes % 0.4 %; Immature Granulocytes Absolute 0.02 #; Lymphocytes # 4.4 10*3/uL (1.4-4.0); Lymphocytes % 77.3 % (21.3-54.2); Mean Corpuscular HGB Conc 31.7 GM/DL (32-36); Mean Corpuscular Hemoglobin 24 PG (27-34); Mean Corpuscular Volume 73.9 FL (87-102); Mean Platelet Volume 9.6 FL (9.6-12.0); Monocytes # 0.5 10*3/uL (0.11-0.8); Monocytes % 8.3 % (1.7-12.7); Neutrophils # 0.6 10*3/uL (1.4-7.4); Neutrophils % 10.8 % (38.7-73.9); Platelet Count 126 T/CUMM (130-400); Red Blood Count 4.22 MC/CUMM (3.8-5.5); Red Cell Distribution Width 13.8 % (9.3-17.3); White Blood Count 5.6 T/CUMM (4-12)
[2017-07-17 07:09] LABS: Osmolality,Calculated 283.3 MOS/KG (273-304); Potassium 3.6 MMOL/L (3.5-5.1)
[2017-07-17 07:44] LABS: Atypical Lymphocytes Few; Band Neutrophils 3 % (0-10); Eosinophils 3 % (0-10); Giant Platelets Few; Hypochromasia 1+; Lymphocytes 73 % (20-55); Ovalocytes Slight; Platelet Estimate Normal; Segmented Neutrophils 14 % (50-85); Total Cells Counted 100
[2017-07-17] MEDS: ATORVASTATIN 40 MG TABLET PO SCH (08:27)
[2017-07-17] MEDS: PANTOPRAZOLE 40 MG TABLET PO SCH (08:27)
[2017-07-17] MEDS: METOPROLOL SUCCINATE XL 50 MG TABLET PO SCH ×2 (08:27→21:02)
[2017-07-17] MEDS: CLOPIDOGREL 75 MG TABLET PO SCH (08:27)
[2017-07-17] MEDS: ENOXAPARIN 40 MG/0.4 ML SYRINGE SUBCUT SCH (08:28)
[2017-07-17] MEDS: metFORMIN 500 MG TABLET PO SCH ×2 (08:28→17:03)
[2017-07-17] MEDS: GALANTAMINE 8 MG PO SCH ×2 (08:33→17:01)
[2017-07-17] MEDS: VANCOMYCIN INJ 750 MG in SODIUM CHLORIDE 0.9% 250 ML IV SCH (10:47)
[2017-07-17] MEDS: rOPINIRole 0.25 MG TABLET PO SCH (21:02)
[2017-07-18] MEDS: VANCOMYCIN INJ 1,000 MG in SODIUM CHLORIDE 0.9% 250 ML IV SCH ×3 (00:17→23:30)
[2017-07-18] MEDS: CEFEPIME 2,000 MG in SYRINGE 1 EACH IV SCH ×3 (05:02→20:52)
[2017-07-18 05:23] LABS: Basophils # 0.1 10*3/uL (0.0-0.2); Basophils % 0.8 % (0.0-0.8); Eosinophils # 0.2 10*3/uL (0.0-0.87); Eosinophils % 2.9 % (0.00-10.9); Hematocrit 31.7 VOL% (35.7-47.0); Hemoglobin 9.7 GM/DL (12.0-16.0); Immature Granulocytes % 0.3 %; Immature Granulocytes Absolute 0.02 #; Lymphocytes # 4.8 10*3/uL (1.4-4.0); Lymphocytes % 80.4 % (21.3-54.2); Mean Corpuscular HGB Conc 30.6 GM/DL (32-36); Mean Corpuscular Hemoglobin 23 PG (27-34); Mean Platelet Volume 10.2 FL (9.6-12.0); Monocytes # 0.5 10*3/uL (0.11-0.8); Monocytes % 8.6 % (1.7-12.7); Neutrophils # 0.4 10*3/uL (1.4-7.4); Platelet Count 132 T/CUMM (130-400); Red Blood Count 4.17 MC/CUMM (3.8-5.5); Red Cell Distribution Width 13.8 % (9.3-17.3); White Blood Count 5.9 T/CUMM (4-12)
[2017-07-18 05:59] LABS: Calcium 8.5 MG/DL (8.5-10.1); Potassium 3.7 MMOL/L (3.5-5.1)
[2017-07-18 06:10] LABS: Band Neutrophils 3 % (0-10); Eosinophils 3 % (0-10); Lymphocytes 83 % (20-55); Microcytosis 1+; Platelet Estimate Normal; Segmented Neutrophils 8 % (50-85); Total Cells Counted 100
[2017-07-18] MEDS: GALANTAMINE 8 MG PO SCH ×2 (08:32→16:56)
[2017-07-18] MEDS: METOPROLOL SUCCINATE XL 50 MG TABLET PO SCH ×2 (08:33→20:48)
[2017-07-18] MEDS: CLOPIDOGREL 75 MG TABLET PO SCH (08:33)
[2017-07-18] MEDS: ENOXAPARIN 40 MG/0.4 ML SYRINGE SUBCUT SCH (08:33)
[2017-07-18] MEDS: metFORMIN 500 MG TABLET PO SCH (08:33)
[2017-07-18] MEDS: ATORVASTATIN 40 MG TABLET PO SCH (08:33)
[2017-07-18] MEDS: PANTOPRAZOLE 40 MG TABLET PO SCH (08:33)
[2017-07-18] MEDS ORDERED: fentaNYL 75 MCG/HR PATCH TRANSDERM SCH (09:00)
[2017-07-18] MEDS: amLODIPine 5 MG TABLET PO SCH (10:56)
[2017-07-18] MEDS: INSULIN LISPRO 100 UNIT/ML SUBCUT SCH ×3 (11:35→20:48)
[2017-07-18] MEDS: rOPINIRole 0.25 MG TABLET PO SCH (20:48)
[2017-07-19] MEDS: CEFEPIME 2,000 MG in SYRINGE 1 EACH IV SCH ×3 (05:47→21:30)
[2017-07-19 06:10] LABS: Basophils % 0.7 % (0.0-0.8); Eosinophils # 0.2 10*3/uL (0.0-0.87); Eosinophils % 3.6 % (0.00-10.9); Hematocrit 30.2 VOL% (35.7-47.0); Hemoglobin 9.7 GM/DL (12.0-16.0); Immature Granulocytes % 0.5 %; Immature Granulocytes Absolute 0.03 #; Lymphocytes # 4.7 10*3/uL (1.4-4.0); Lymphocytes % 77.1 % (21.3-54.2); Mean Corpuscular HGB Conc 32.1 GM/DL (32-36); Mean Corpuscular Hemoglobin 24 PG (27-34); Mean Platelet Volume 9.8 FL (9.6-12.0); Monocytes # 0.6 10*3/uL (0.11-0.8); Neutrophils # 0.6 10*3/uL (1.4-7.4); Neutrophils % 9.1 % (38.7-73.9); Platelet Count 133 T/CUMM (130-400); Red Blood Count 4.08 MC/CUMM (3.8-5.5); Red Cell Distribution Width 13.8 % (9.3-17.3); White Blood Count 6.1 T/CUMM (4-12)
[2017-07-19 06:29] LABS: Calcium 8.9 MG/DL (8.5-10.1); Potassium 3.5 MMOL/L (3.5-5.1)
[2017-07-19 07:37] LABS: Band Neutrophils 2 % (0-10); Hypochromasia 1+; Lymphocytes 85 % (20-55); Platelet Estimate Decreased; Segmented Neutrophils 11 % (50-85); Smudge Cells Moderate; Total Cells Counted 100
[2017-07-19] MEDS: CLOPIDOGREL 75 MG TABLET PO SCH (08:45)
[2017-07-19] MEDS: GALANTAMINE 8 MG PO SCH ×2 (08:46→16:56)
[2017-07-19] MEDS: ATORVASTATIN 40 MG TABLET PO SCH (08:46)
[2017-07-19] MEDS: PANTOPRAZOLE 40 MG TABLET PO SCH (08:46)
[2017-07-19] MEDS: METOPROLOL SUCCINATE XL 50 MG TABLET PO SCH ×2 (08:46→20:58)
[2017-07-19] MEDS: amLODIPine 5 MG TABLET PO SCH (08:46)
[2017-07-19] MEDS: ENOXAPARIN 40 MG/0.4 ML SYRINGE SUBCUT SCH (08:46)
[2017-07-19] MEDS: INSULIN LISPRO 100 UNIT/ML SUBCUT SCH ×4 (08:50→20:59)
[2017-07-19] MEDS: VANCOMYCIN INJ 1,000 MG in SODIUM CHLORIDE 0.9% 250 ML IV SCH ×2 (11:32→23:45)
[2017-07-19] MEDS: rOPINIRole 0.25 MG TABLET PO SCH (20:58)
[2017-07-20] MEDS: CEFEPIME 2,000 MG in SYRINGE 1 EACH IV SCH ×2 (06:00→14:17)
[2017-07-20] MEDS: INSULIN LISPRO 100 UNIT/ML SUBCUT SCH ×2 (07:48→11:48)
[2017-07-20] MEDS: ENOXAPARIN 40 MG/0.4 ML SYRINGE SUBCUT SCH (08:29)
[2017-07-20] MEDS: PANTOPRAZOLE 40 MG TABLET PO SCH (08:30)
[2017-07-20] MEDS: GALANTAMINE 8 MG PO SCH (08:30)
[2017-07-20] MEDS: amLODIPine 5 MG TABLET PO SCH (08:30)
[2017-07-20] MEDS: METOPROLOL SUCCINATE XL 50 MG TABLET PO SCH (08:30)
[2017-07-20] MEDS: CLOPIDOGREL 75 MG TABLET PO SCH (08:30)
[2017-07-20] MEDS: ATORVASTATIN 40 MG TABLET PO SCH (08:30)
[2017-07-20 12:14] VITALS: BP 157/78
[2017-07-20] MEDS: VANCOMYCIN INJ 1,000 MG in SODIUM CHLORIDE 0.9% 250 ML IV SCH (14:17)
== END 2017-07-20 15:47 | disposition home health service (06) | DRG 603 ==
LOC: N.ED 14:00 → SUATTDRO 17:03 → N.EDINP 17:03 → N.2E 19:48
PROVIDERS: ADMIT Internal Medicine; ATTEND Hospitalist